=== PATIENT | male | born 1995 ===

== ENCOUNTER 2020-11-04 02:19 | Emergency (ER) | payer MEDICAID, OTHER ==
[2020-11-04] MEDS ORDERED: Sodium Chloride 0.9% 1,000 ML IV ONE (02:31)
[2020-11-04] MEDS: Sodium Chloride 0.9% 1,000 ML IV SCH ×2 (02:50→06:02)
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
[2020-11-04] MEDS ORDERED: Iopamidol 755 Mg/ML 100 ML Bottle IV ONE ×2 (03:33→18:55)
[2020-11-04] MEDS ORDERED: Ketorolac 30 MG/ML SDV IVPUSH ONE (05:57)
== END 2020-11-04 07:10 ==
LOC: EDBD → FB.ED 02:19
DX: S22.089A Unspecified fracture of T11-T12 vertebra, initial encounter for closed fracture (principal); S01.81XA Laceration without foreign body of other part of head, initial encounter; R03.0 Elevated blood-pressure reading, without diagnosis of hypertension; M54.2 Cervicalgia; S40.812A Abrasion of left upper arm, initial encounter; S80.211A Abrasion, right knee, initial encounter; Z20.822 Contact with and (suspected) exposure to COVID-19; V48.5XXA Car driver injured in noncollision transport accident in traffic accident, initial encounter
CPT/HCPCS: 12011; 36415; 70450; 71045; 71250; 72125; 72131; 72170; 74177; 80053; 80305; 80307; 84484; 85025; 85610; 87635; 96374; 99285; J1885; J7030; Q9967; U0002

== ENCOUNTER 2021-06-02 23:52 | Emergency (ER) | payer MEDICAID, OTHER ==
[2021-06-02] MEDS ORDERED: Ibuprofen 800 MG Tab PO ONE (23:53)
--- NOTE | 2021-06-03 00:08 | EDM.PDOC ---
ED HPI GENERAL MEDICAL PROBLEM - General Stated Complaint: CHEST TIGHTNESS Time Seen by Provider: 06/03/21 00:06 Source of Information: Reports: Patient History Limitations: Reports: No Limitations - History of Present Illness INITIAL COMMENTS - FREE TEXT/NARRATIVE: Charlie is a pleasant 25 yo Male with shortness of breath x 24h. Associated with left sided pleuritic chest pain.No fever.He had COVID-19 last month. - Related Data Allergies Allergy/AdvReac Type Severity Reaction Status Date / Time No Known Allergies Allergy Verified 11/04/20 03:26 Home Meds: Home Meds QUEtiapine [SEROquel] 100 mg PO BEDTIME 06/03/21 [History] cloNIDine [Catapres] 0.1 mg PO BEDTIME 06/03/21 [History] ED ROS GENERAL - Review of Systems Review Of Systems: Comprehensive ROS is negative, except as noted in HPI. ED EXAM, GENERAL - Physical Exam Exam: See Below Exam Limited By: No Limitations General Appearance: Alert, No Apparent Distress Nose: Normal Inspection Throat/Mouth: Normal Inspection Head: Atraumatic Neck: Normal Inspection Respiratory/Chest: No Respiratory Distress, Decreased Breath Sounds Cardiovascular: Normal Peripheral Pulses, Regular Rate, Rhythm #1 Interpretation EKG Date: 06/03/21 Rhythm: NSR [place]: Normal P-Wave: Present QRS: Normal ST-T: Normal QT: Normal Comparison: NA - No Prior EKG Course - Orders/Labs/Meds Orders: Active Orders 24 hr Category Date Time Status Ang Chest [CT] Stat Exams 06/03/21 00:02 Taken EKG 12 Lead [EK] Routine Ther 06/03/21 00:02 Ordered Labs: Laboratory Tests 06/03/21 06/03/21 06/03/21 Range/Units 00:16 00:16 00:16 WBC 6.7 (3.2-10.1) x10-3/uL RBC 5.19 (3.90-5.90) x10(6)uL Hgb 13.8 (12.9-17.7) g/dL Hct 42.0 (38.3-50.1) % MCV 80.9 (80.8-98.7) fL MCH 26.6 L (27.0-33.3) pg MCHC 32.8 (28.7-35.3) g/dL RDW 15.8 H (12.4-15.0) % Plt Count 285 (117-477) x10(3)uL MPV 7.2 (6.7-11.0) fL Neut % (Auto) 45.1 (40.3-71.8) % Lymph % (Auto) 42.5 (15.8-45.3) % [place] % (Auto) 7.9 (5.5-15.2) % Eos % (Auto) 3.6 (0.1-6.8) % Baso % (Auto) 0.9 (0.3-3.8) % Neut # (Auto) 3.0 (1.7-6.9) x10-3/uL Lymph # (Auto) 2.9 (0.5-4.5) x10-3/uL [place] # (Auto) 0.5 (0.0-1.2) x10-3/uL Eos # (Auto) 0.2 (0.0-0.6) x10-3/uL Baso # (Auto) 0.1 (0.0-0.3) x10-3/uL Sodium 142 (135-145) mmol/L Potassium 3.8 (3.5-5.3) mmol/L Chloride 107 D (100-110) mmol/L Carbon Dioxide 25 (21-32) mmol/L BUN 9 (7-18) mg/dL Creatinine 0.9 (0.70-1.30) mg/dL Est Cr Clr Drug Dosing TNP Estimated GFR (MDRD) > 60 (>60) BUN/Creatinine Ratio 10.0 (9-20) Glucose 117 H (80-116) mg/dL Calcium 8.2 L (8.6-10.2) mg/dL Troponin I 6.8 (4.0-60.3) pg/mL NT-Pro-B Natriuret Pep (<=125) pg/mL 06/03/21 Range/Units 00:16 WBC (3.2-10.1) x10-3/uL RBC (3.90-5.90) x10(6)uL Hgb (12.9-17.7) g/dL Hct (38.3-50.1) % MCV (80.8-98.7) fL MCH (27.0-33.3) pg MCHC (28.7-35.3) g/dL RDW (12.4-15.0) % Plt Count (117-477) x10(3)uL MPV (6.7-11.0) fL Neut % (Auto) (40.3-71.8) % Lymph % (Auto) (15.8-45.3) % [place] % (Auto) (5.5-15.2) % Eos % (Auto) (0.1-6.8) % Baso % (Auto) (0.3-3.8) % Neut # (Auto) (1.7-6.9) x10-3/uL Lymph # (Auto) (0.5-4.5) x10-3/uL [place] # (Auto) (0.0-1.2) x10-3/uL Eos # (Auto) (0.0-0.6) x10-3/uL Baso # (Auto) (0.0-0.3) x10-3/uL Sodium (135-145) mmol/L Potassium (3.5-5.3) mmol/L Chloride (100-110) mmol/L Carbon Dioxide (21-32) mmol/L BUN (7-18) mg/dL Creatinine (0.70-1.30) mg/dL Est Cr Clr Drug Dosing Estimated GFR (MDRD) (>60) BUN/Creatinine Ratio (9-20) Glucose (80-116) mg/dL Calcium (8.6-10.2) mg/dL Troponin I (4.0-60.3) pg/mL NT-Pro-B Natriuret Pep 25 (<=125) pg/mL Meds: Medications Discontinued Medications Generic Name Dose Route Start Last Admin Trade Name Freq PRN Reason Stop Dose Admin Iopamidol 68 ml 06/03/21 00:35 06/03/21 00:48 Iopamidol 755 Mg/Ml 75 Ml Bottle IV 06/03/21 00:36 68 ml ONETIME ONE Administration Departure - Departure Time of Disposition: 01:27 Disposition: Home, Self-Care 01 Condition: Good Clinical Impression: Chest pain Qualifiers: Chest pain type: chest pain on breathing Qualified Code(s): R07.1 - Chest pain on breathing - Discharge Information Instructions: Nonspecific Chest Pain, Adult Referrals: PCP,None [Primary Care Provider] - (PRN) Forms: ED Department Discharge Additional Instructions: Motrin 600 mg PO TID x 5 days - Problem List & Annotations (1) Chest pain SNOMED Code(s): 15157685 Code(s): R07.9 - CHEST PAIN, UNSPECIFIED Status: Acute Current Visit: No Qualifiers: Chest pain type: chest pain on breathing Qualified Code(s): R07.1 - Chest pain on breathing; R07.81 - Pleurodynia (2) Elevated BP without diagnosis of hypertension SNOMED Code(s): 886129533 Code(s): R03.0 - ELEVATED BLOOD-PRESSURE READING, W/O DIAGNOSIS OF HTN Status: Acute Current Visit: No - Problem List Review Problem List Initiated/Reviewed/Updated: Yes - My Orders Last 24 Hours: My Active Orders 06/03/21 00:02 Ang Chest [CT] Stat EKG 12 Lead [EK] Routine - Assessment/Plan Last 24 Hours: My Active Orders 06/03/21 00:02 Ang Chest [CT] Stat EKG 12 Lead [EK] Routine Plan: CT chest Negative.NSAIDs.
[2021-06-03] MEDS ORDERED: Iopamidol 755 Mg/ML 75 ML Bottle IV ONE (00:35)
== END 2021-06-03 01:40 | disposition home or self-care (01) ==
LOC: FB.ED 23:52
DX: R07.1 Chest pain on breathing (principal)
CPT/HCPCS: 36415; 71275; 80048; 83880; 84484; 85025; 93005; 99285; A9270; Q9967